=== PATIENT | male | born 1960 | race Caucasian/White ===

== ENCOUNTER → 2016-11-10 | Outpatient (CLI) | payer BC, OTHER ==
[~2016-11-10] MED LIST: GLIM1TAB2 PO; IOHEXOL 300 MG/ML 100ML VIAL. IV ONE; LIRA0.6P2 SQ; MELO-156 PO; OXYC1TAB9 PO; PIOG1TAB15 PO
--- NOTE | 2016-11-10 13:01 | KCIC ---
PROCEDURE MRI lumbar spine without contrast. HISTORY Low back pain. Surgery in August 2015. TECHNIQUE Sagittal T1, sagittal T2, sagittal STIR, axial T1, and axial T2 sequences are provided. COMPARISON July 28, 2015, believed to be the same patient. FINDINGS There is levocurvature centered at L3. There is 2-3 millimeters of retrolisthesis at L3-L4. There is mild endplate edema at L1-L2 and L4-L5 most notably. There is fatty replacement of the endplates at L3-L4. There is no worrisome marrow lesion. There is diffuse disc desiccation with several vacuum discs suspected. Narrowing of disc height from L1-L2 through L4-L5 is noted. The conus medullaris is normal in signal intensity and in position. The numbering system assumes 5 lumbar type vertebral bodies. Findings by individual level are as follows: L1-L2: There is a disc bulge and facet hypertrophy. There is a broad-based protrusion centered left foraminal. This extends extra foraminal to paracentral. There is left lateral recess narrowing. There is moderate left foraminal narrowing, with flattening of the exiting nerve root. There is also mild right foraminal narrowing. L2-L3: There is a disc bulge and facet hypertrophy. There is prominent epidural fat, mild. Midline AP diameter of the thecal sac is compressed to 9-10 millimeters. There is mild right lateral recess narrowing. There is minimal right foraminal narrowing. L3-L4: There is a disc osteophyte complex and facet hypertrophy. Midline AP diameter of the thecal sac is minimally narrowed down to 12 millimeters. There is right lateral recess narrowing which is mild. There is severe right and mild to moderate left foraminal narrowing. Right exiting nerve root is compressed. L4-L5: There is a partial laminectomy defect on the right at this level. There is facet hypertrophy. There is a disc osteophyte complex. Epidural fat is mildly prominent. Midline AP diameter of the thecal sac is narrowed to 9 millimeters. There is severe left and mild right lateral recess narrowing. This could explain a left L5 radiculopathy. Foraminal narrowing is moderate to severe on the right with compression of the exiting nerve root. Foraminal narrowing on the left is moderate. L5-S1: Diffuse disc bulge is eccentric to the left. There is facet hypertrophy. There is mild left lateral recess narrowing. There is severe left foraminal narrowing, contact with the exiting nerve root. IMPRESSION 1. Multilevel degenerative disc disease and facet hypertrophy. Canal stenosis is greatest at L2-L3. Lateral recess narrowing is greatest on the left at L4-L5. Several levels of high-grade foraminal narrowing are noted, as described above. 2. Prior partial laminectomy on the right at L4-L5. Electronically signed by: Kory Shoemaker MD (Nov 10, 2016 13:00:20)
--- NOTE | 2016-11-10 13:32 | KCIC ---
PROCEDURE CT chest with contrast. HISTORY Cough, smoker, abnormal blood work. TECHNIQUE Helical CT imaging of the chest is performed after 95 cc Omnipaque 300 IV contrast. PQRS: One or more the following individualized dose reduction techniques were utilized for the study: 1. Automated exposure control. 2. Adjustment of the mA and/or kV according to patient size. 3. Use of iterative reconstruction technique. COMPARISON None. FINDINGS Minimal reticular opacity in the peripheral lateral right lower lobe may be scarring or atelectasis, image 52. Tiny subpleural nodule lateral left lung base, image 61. Lungs otherwise clear. Central airways are patent. No pleural effusion. Thyroid is symmetric. Subcentimeter bilateral axillary lymph nodes. AP window lymph node measures 10 millimeter short axis diameter. Borderline enlarged right hilar lymph nodes. There are subcentimeter left hilar lymph nodes. There are other subcentimeter mediastinal lymph nodes. Great vessels are normal caliber. Cardiac size normal, no pericardial effusion. Visualized upper abdomen is unremarkable. No compression fracture in the thoracic spine. Degenerative spondylosis of L1/L2 with vacuum disc phenomenon. IMPRESSION 1. Mildly enlarged AP window lymph node. Borderline enlarged right hilar lymph nodes. Suggest CT chest with contrast follow up in 3-6 months. 2. No acute pulmonary process. Electronically signed by: Kevin Mitchell MD (Nov 10, 2016 13:31:04)
== END | disposition home or self-care (01) ==
LOC: KCIC MRI 09:15
PROVIDERS: ATTEND Family Medicine
DX: M54.5 Low back pain (principal); R05 Cough; F17.200 Nicotine dependence, unspecified, uncomplicated; R79.9 Abnormal finding of blood chemistry, unspecified
CPT/HCPCS: 71260; 72148; 82565; Q9967

== ENCOUNTER → 2018-09-03 | Outpatient (CLI) | payer BC, OTHER ==
[~2018-09-03] MED LIST changes: -IOHEXOL 300 MG/ML 100ML VIAL. IV ONE; -MELO-156 PO; +MELO7.5T29 PO; +OXYC-411 PO; -OXYC1TAB9 PO; -PIOG1TAB15 PO; +PIOG1TAB24 PO
--- NOTE | 2018-09-04 09:53 | SLEEP ---
DATE OF STUDY: 09/03/2018 ATTENDING PHYSICIAN: Dr. Manuel. The patient is a 57 years old who weighs 285 pounds with a BMI of 38.6. The patient's Laie score was 3. The patient underwent home sleep study performed by [facility]. Total recording time was 478 minutes. During the night of study, the patient at 295 obstructive apneas, no central apneas and 11 mixed apneas and 43 hypopneas. The patient's apnea-hypopnea index was 44 per hour. No supine sleep seen. Nocturnal oximetry study revealed an average oxygen saturation of 91% with the lowest of 81%. 119 minutes were spent in oxygen saturation less than 90%. Mean heart rate of 64 beats per minute. IMPRESSION: 1. Severe sleep apnea-hypopnea syndrome at an AHI of 44 per hour. 2. [id number] nocturnal hypoxia secondary to obstructive sleep apnea. RECOMMENDATIONS: 1. The patient would benefit from in-lab CPAP titration study. 2. Once optimal CPAP pressure is achieved, then follow up in 4-6 weeks to assess compliance with CPAP and to document clinical improvement. 3. Weight loss is strongly advised. 4. Avoid PARAGLIDING [employer]CTOR depressants. 5. Caution regarding driving until symptoms of sleep apnea resolve with the above recommendations. GRIFFIN GARCIA MD DR: DASIA/kenya JOB#: [id number] / [id number] CALLIE Cordero MD
== END | disposition home or self-care (01) ==
LOC: RT 10:09
PROVIDERS: ATTEND Internal Medicine Cardiovascular Disease
DX: G47.33 Obstructive sleep apnea (adult) (pediatric) (principal); G47.34 Idiopathic sleep related nonobstructive alveolar hypoventilation
CPT/HCPCS: G0399

== ENCOUNTER → 2018-10-16 | Outpatient (CLI) | payer BC, OTHER ==
--- NOTE | 2018-10-22 14:05 | SLEEP ---
DATE OF STUDY: 10/16/2018 ATTENDING PHYSICIAN: Dr. Raymond. The patient is 58 years old who weighs 285 pounds with a BMI of 46. The patient had a home sleep study and was found to have severe FILI at an AHI of 44 per hour. The patient returned for in-lab CPAP titration study at [facility]. During the night study, the patient spent 417 minutes in bed and slept for 355 minutes with a sleep efficiency of 85%. Sleep latency was 5 minutes with a REM latency of 112 minutes. Overall, sleep architecture showed increased stage 1 and stage 2 sleep, reduced slow wave sleep and reduced REM sleep. The patient was started on CPAP at 5 cm water and titrated up to 15 cm water. At the final pressure, the patient slept for 45 minutes. The patient had supine sleep, but no REM sleep at the final pressure. The patient's AHI was reduced to 5 per hour due to mostly for central apneas. Oxygen saturation remained above 89%. The patient used a medium size full facemask. PLMs were seen at index of 135 per hour and 11 per hour caused EEG arousals. EKG monitoring revealed mean heart rate of 75 beats per minute. No arrhythmias observed. IMPRESSION: 1. Severe sleep apnea diagnosed by home sleep study. 2. Severe periodic limb movements. RECOMMENDATIONS: 1. CPAP at 15 cm water completely eliminated the patient's sleep apnea and should be used on a nightly basis. 2. Follow up in 4-6 weeks to assess compliance with CPAP and to document clinical improvement. 3. Weight loss is strongly advised. 4. Avoid DISTRIBUTION AGENT depressants. 5. Caution regarding driving until symptoms of sleep apnea resolve with the use of CPAP. 6. The patient should also be further evaluated for symptoms of restless legs during the day and if present, it can be treated with dopaminergic agonist agents. GRIFFIN GARCIA MD DR: DASIA/kenya JOB#: [id number] / [id number] MADIHA You MD
== END | disposition home or self-care (01) ==
LOC: RT 18:31
PROVIDERS: ATTEND Family Medicine
DX: G47.33 Obstructive sleep apnea (adult) (pediatric) (principal); G47.61 Periodic limb movement disorder
CPT/HCPCS: 95811

== ENCOUNTER → 2019-06-02 | Outpatient (CLI) | payer BC, OTHER ==
[~2019-06-02] MED LIST changes: +ATOR20TA58 PO; +ZOLP10TA PO
[2019-06-02 08:55] LABS: BASO # 0.1 x10^3/uL (0.0-0.2); BASO % 1 % (0-3); EOS # 0.2 x10^3/uL (0.0-0.7); EOS % 3 % (0-3); HEMATOCRIT 43.7 % (39.0-53.0); HEMOGLOBIN 15.2 g/dL (13.0-17.5); LYMPH # 2.5 x10^3/uL (1.0-4.8); LYMPH % 36 % (24-48); MEAN CORPUSCULAR HEMOGLOBIN 32 pg (25-35); MEAN CORPUSCULAR HGB CONC 35 g/dL (31-37); MEAN CORPUSCULAR VOLUME 91 fL (79-100); MONO # 0.5 x10^3/uL (0.0-1.1); MONO % 7 % (0-9); NEUT # 3.7 x10^3/uL (1.8-7.7); NEUT % 54 % (31-73); PLATELET COUNT 262 x10^3/uL (140-400); RED BLOOD COUNT 4.83 x10^6/uL (4.30-5.70); RED CELL DISTRIBUTION WIDTH 13.9 % (11.5-14.5); WHITE BLOOD COUNT 6.9 x10^3/uL (4.0-11.0)
[2019-06-02 09:03] LABS: PROTHROMBIN TIME PATIENT 11.4 SEC (11.7-14.0)
[2019-06-02 09:14] LABS: BILIRUBIN,URINE NEGATIVE (NEG); CLARITY,URINE CLEAR; COLOR,URINE YELLOW; NITRITE,URINE NEGATIVE (NEG); PH,URINE 5.5; PROTEIN,URINE NEGATIVE (NEG-TRACE)
[2019-06-02 09:20] LABS: ALBUMIN 3.6 g/dL (3.4-5.0); CALCIUM 8.7 mg/dL (8.5-10.1); CREATININE 0.9 mg/dL (0.7-1.3); GFR 86.7; POTASSIUM 4.3 mmol/L (3.5-5.1)
[2019-06-02 09:36] LABS: BACTERIA,URINE 0 /HPF (0-FEW); RBC,URINE 0 /HPF (0-2); SQUAMOUS EPITHELIAL CELL,UR MOD /LPF
--- NOTE | 2019-06-02 13:03 | EKG ---
[facility] [address] [place] [address] Test Date: 2019-06-02 Test Time: 12:51:32 Pat Name: DOMINIK VERNON Department: Room: Gender: M Cephalometric Tracer: CHEYANNE : 1960 Requested By: DEEPTI ALVES Order Number: [id number] Reading MD: Jian Escobedo Measurements Intervals [place] Rate: 62 P: 43 VT: 202 QRS: 62 QRSD: 88 T: 57 QT: 404 QTc: 412 Interpretive Statements SINUS RHYTHM QRS(T) CONTOUR ABNORMALITY CONSISTENT WITH ANTEROSEPTAL INFARCT AGE UNDETERMINED ABNORMAL ECG Electronically Signed On 06-03-2019 16:47:51 CDT by Jian Escobedo
--- NOTE | 2019-06-02 13:43 | RAD ---
EXAM: Chest, 2 views. HISTORY: Hypertension. Preoperative evaluation. COMPARISON: None. FINDINGS: 2 views of the chest are obtained. There is no infiltrate, pleural effusion or pneumothorax. The heart is normal in size. IMPRESSION: No acute pulmonary finding. Electronically signed by: Naila Zamora MD (06/02/2019 1:40 PM) [place] [id number]
[2019-06-02 23:07] LABS: HEMOGLOBIN A1C 8.3 % (4.8-5.6)
== END | disposition home or self-care (01) ==
LOC: SURGPAT 12:36
PROVIDERS: ATTEND Orthopaedic Surgery
DX: Z01.818 Encounter for other preprocedural examination (principal); M17.12 Unilateral primary osteoarthritis, left knee; I10 Essential (primary) hypertension; R94.31 Abnormal electrocardiogram [ECG] [EKG]
CPT/HCPCS: 36415; 71046; 80048; 81001; 82040; 82306; 83036; 85025; 85610; 85651; 85730; 87641; 93005